=== PATIENT | male | born 1940 | race Caucasian/White ===

== ENCOUNTER 2020-03-21 21:52 | Emergency (ER) | payer MEDICARE, SELFPAY ==
--- NOTE | 2020-03-21 21:53 | ECG_ITS ---
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 Measurements Intervals [place] Rate: 71 P: 15 TN: 221 QRS: -3 QRSD: 104 T: 8 QT: 394 QTc: 431 Interpretive Statements SINUS RHYTHM WITH FIRST DEGREE AV BLOCK Possible old inferior wall OR No previous ECG available for comparison Electronically Signed On 03-22-2020 18:01:41 [employer] by Emery Lee M.D. [id number]
--- NOTE | 2020-03-21 21:53 | XR_ITS ---
WS: [id number] Exam: XR chest 1V portable [id number] Date/Time of Exam: 03/21/2020 9:57 PM Reason For Exam: cp No previous exams. Infiltrate and plaque atelectasis in the right lower lung zone. There may be some infiltrate in the l ingula. The heart is enlarged. The lungs are fully expanded. No obvious pleural effusion. Bony struct ures are intact. The mediastinum is normal in contour. XR/XR chest 1V portable [id number] IMPRESSION: 1. Infiltrate and atelectasis in the right lower lung zone. There may also be s ome infiltrate in the lingula. 2. Mild cardiac enlargement.
[2020-03-21 21:55] VITALS: BP 163/125; PULSE 75; RESP 17; O2SAT 100; BMI 28.7
--- NOTE | 2020-03-21 22:02 | ED_ITS ---
HPI - Chest Pain General: Chief Complaint: Chest Pain Stated Complaint: poss heart attack Time Seen by Provider: 03/21/20 21:54 Source: patient Mode of arrival: ambulatory Limitations: no limitations History of Present Illness: HPI narrative: 79-year-old male states started having chest pain started roughly 1 hour ago. States it was a sharp pain in his chest and went to his left chest and left arm. States that since resolved and he is now pain-free. He denies any nausea or shortness of breath. He states he was concerned that he is having a heart attack. He denies any worsening or improving factors. States the pain started while he was sitting in his computer. MD complaint: chest pain Onset (ago): hour(s) Associated symptoms: Deny abdominal pain, dyspnea, fever(s), nausea or vomiting Review of Systems Const: Denies: fever(s), chills, body aches or change in appetite Eyes: Denies: blurry vision or eye discomfort ENMT: Denies: throat pain or dental pain Card: Reports: chest pain Resp: Denies: dyspnea GI: Denies: abdominal pain, nausea, vomiting or diarrhea : Denies: dysuria Musc: Denies: neck pain or back pain Skin/Breast: Denies: rash Neuro: Denies: headache(s) Psych: Denies: depression Jermaine/Lymph: Denies: easy bruising All/Imm: Denies: urticaria Physical Exam Const: COMMON NORMALS: no acute distress, patient oriented x3 and healthy appearing HENMT: COMMON NORMALS: normocephalic and atraumatic HEAD & SCALP: normocephalic and atraumatic Eye: COMMON NORMALS: Equal, round and reactive pupils present and EOMs intact bilaterally PUPIL: Yes Equal, round and reactive pupils present Neck/C-Spine: COMMON NORMALS: full ROM and supple Chest: COMMONS NORMALS: normal inspection of the chest and normal palpation of entire chest wall Resp: COMMON NORMALS: normal respiratory effort, No retractions, No use of accessory muscles and clear to auscultation bilaterally AUSCULTATION: clear to auscultation bilaterally Cardio: COMMON NORMALS: regular rate, regular rhythm and No murmurs present (Cardio) RATE: regular rate RHYTHM: regular rhythm GI: COMMON NORMALS: Normal to inspection, nondistended, normoactive bowel sounds present, Soft to palpation, non-tender and no masses PALPATION: Yes Soft to palpation Extremity: COMMON NORMALS: normal to inspection and full ROM Neuro: COMMON NORMALS: patient oriented x3, moves all extremities and no focal motor deficits Psych: COMMON NORMALS: mental status grossly normal, Normal thought process present and cooperative THOUGHT PROCESS: Normal thought process present Skin: COMMON NORMALS: no rashes or lesions noted and no wounds GENERAL SKIN EXAM: no rashes or lesions noted Course Vital Signs: Vital signs: Vital Signs Pulse Rate 70 03/21/20 23:44 Respiratory Rate 19 H 03/21/20 23:44 Blood Pressure 132/73 03/21/20 23:44 Pulse Oximetry 95 03/21/20 23:44 MDM - Chest Pain MDM Narrative: Medical decision making narrative: Patient presents or chest pain. Strongly recommended admission due to his consistent story. He states he feels much improved and refuses admission. A second troponin was negative. We will have him follow-up with a primary care doctor and he is return if he has any more chest pain. He understands agrees to plan. He has no signs of pulmonary embolism or aortic dissection. Lab Data: Labs: Lab Results 03/21/20 03/21/20 03/21/20 Range/Units 22:10 22:10 22:10 WBC 9.9 (4.0-10.0) 10^3/ uL RBC 4.86 (4.1-5.3) 10^6/u L Hgb 15.2 (11.7-16.6) g/dL Hct 46.0 (42.0-52.0) % MCV 94.7 H (80-94) fL MCH 31.3 (28.0-34.0) pg MCHC 33.0 (30.0-36.0) g/dL RDW 11.8 L (12.1-15.1) % Plt Count 167 (130-400) 10^3/c mm MPV 9.7 (7.4-10.4) fL Neut % (Auto) 45.3 % Lymph % (Auto) 33.9 % [place] % (Auto) 17.7 % Eos % (Auto) 1.9 % Baso % (Auto) 0.8 % Neut # (Auto) 4.49 (1.8-7.7) 10^3/u L Lymph # (Auto) 3.4 (0.8-4.8) 10^3/u L [place] # (Auto) 1.8 H (0.2-0.9) 10^3/u L Eos # (Auto) 0.2 (0.0-0.8) 10^3/u L Baso # (Auto) 0.1 (0.0-0.1) 10^3/u L Nucleated RBC % (a uto) 0 % Nucleated RBCs # 0.0 /100WBC Sodium 135 L (136-145) mmol/L Potassium 4.0 (3.5-5.1) mmol/L Chloride 102 (98-107) mmol/L Carbon Dioxide 24 (22-29) mmol/L Anion Gap 13.0 (5-19) BUN 22 (8-23) mg/dL Creatinine 1.2 (0.7-1.2) mg/dL GFR Calculation Not Reportable Glucose 103 (65-115) mg/dL Calculated Osmolal ity 284 L (285-295) mOsm/k g Calcium 9.1 (8.5-10.5) mg/dL Total Bilirubin 0.4 (0.15-1.2) mg/dL AST 24 (0-40) U/L ALT 18 (0-41) U/L Alkaline Phosphata se 79 (40-130) IU/L Troponin T Baselin e 9 (0-15) ng/L Troponin T 120 [address] [place] (0-15) ng/L Delta Troponin T (0-10) ABS# Total Protein 7.0 (6.6-8.7) g/dL Albumin 3.8 (3.5-5.2) g/dL Globulin 3.2 (1.3-4.6) g/dL 03/21/20 Range/Units 23:55 WBC (4.0-10.0) 10^3/ uL RBC (4.1-5.3) 10^6/u L Hgb (11.7-16.6) g/dL Hct (42.0-52.0) % MCV (80-94) fL MCH (28.0-34.0) pg MCHC (30.0-36.0) g/dL RDW (12.1-15.1) % Plt Count (130-400) 10^3/c mm MPV (7.4-10.4) fL Neut % (Auto) % Lymph % (Auto) % [place] % (Auto) % Eos % (Auto) % Baso % (Auto) % Neut # (Auto) (1.8-7.7) 10^3/u L Lymph # (Auto) (0.8-4.8) 10^3/u L [place] # (Auto) (0.2-0.9) 10^3/u L Eos # (Auto) (0.0-0.8) 10^3/u L Baso # (Auto) (0.0-0.1) 10^3/u L Nucleated RBC % (a uto) % Nucleated RBCs # /100WBC Sodium (136-145) mmol/L Potassium (3.5-5.1) mmol/L Chloride (98-107) mmol/L Carbon Dioxide (22-29) mmol/L Anion Gap (5-19) BUN (8-23) mg/dL Creatinine (0.7-1.2) mg/dL GFR Calculation Glucose (65-115) mg/dL Calculated Osmolal ity (285-295) mOsm/k g Calcium (8.5-10.5) mg/dL Total Bilirubin (0.15-1.2) mg/dL AST (0-40) U/L ALT (0-41) U/L Alkaline Phosphata se (40-130) IU/L Troponin T Baselin e (0-15) ng/L Troponin T 120 Min [place] 9.38 (0-15) ng/L Delta Troponin T 0.38 (0-10) ABS# Total Protein (6.6-8.7) g/dL Albumin (3.5-5.2) g/dL Globulin (1.3-4.6) g/dL Imaging Data^: CXR: Attestation: I personally reviewed and interpreted this imaging study as follows: My impression: no acute abnormality EKG Data^: EKG 1: Attestation: I personally reviewed and interpreted this EKG as follows: EKG interpretation date: 03/21/20 EKG interpretation time: 21:57 Interpretation: nsr hr [address] or t wave abnormalities qrs 104 qtc 417 Discharge Plan Discharge Patient Disposition: Home Clinical Impression: Chest pain Qualifiers: Chest pain type: unspecified Qualified Code(s): R07.9 - Chest pain, unspecified Condition: Stable Discharge Orders: Discharge ED (Routine); Ordered 03/22/20 Ordered By: Edinson Carrero Discharge Diet: Advance as tolerated Discharge Activity: Resume usual activity Patient Instructions: Chest Pain (ED) Coding Level of Care Code ED Decorating Inspector for Amy Fwsarah Exam Comprehensive
[2020-03-21 22:03] VITALS: BP 128/94; PULSE 74; RESP 12; O2SAT 100
--- NOTE | 2020-03-21 22:06 | PC.NURSE ---
patient reports that he took ASA at home prior to arrival
[2020-03-21 22:27] LABS: Basophils # 0.1 10^3/uL (0.0-0.1); Basophils % 0.8 %; Eosinophils # 0.2 10^3/uL (0.0-0.8); Eosinophils % 1.9 %; Hemoglobin 15.2 g/dL (11.7-16.6); Lymphocytes # 3.4 10^3/uL (0.8-4.8); Lymphocytes % 33.9 %; Mean Corpuscular Hemoglobin 31.3 pg (28.0-34.0); Mean Corpuscular Volume 94.7 fL (80-94); Mean Platelet Volume 9.7 fL (7.4-10.4); Monocytes # 1.8 10^3/uL (0.2-0.9); Monocytes % 17.7 %; Neutrophils # 4.49 10^3/uL (1.8-7.7); Neutrophils % 45.3 %; Nucleated Red Blood Cells % 0 %; Platelet Count 167 10^3/cmm (130-400); Red Blood Count 4.86 10^6/uL (4.1-5.3); Red Cell Distribution Width 11.8 % (12.1-15.1); White Blood Count 9.9 10^3/uL (4.0-10.0)
[2020-03-21 22:41] LABS: Alanine Aminotransferase 18 U/L (0-41); Albumin Level 3.8 g/dL (3.5-5.2); Alkaline Phosphatase 79 IU/L (40-130); Blood Urea Nitrogen 22 mg/dL (8-23); Calcium 9.1 mg/dL (8.5-10.5); Carbon Dioxide 24 mmol/L (22-29); Chloride 102 mmol/L (98-107); Globulin 3.2 g/dL (1.3-4.6); Glucose 103 mg/dL (65-115); Osmolality Calculated 284 mOsm/kg (285-295); Sodium 135 mmol/L (136-145); Total Bilirubin 0.4 mg/dL (0.15-1.2)
[2020-03-21 22:43] LABS: Aspartate Amino Transferase 24 U/L (0-40); Troponin(5th) Baseline 9 ng/L (0-15)
[2020-03-21 23:07] VITALS: BP 132/73; PULSE 75; RESP 13; O2SAT 95
[2020-03-21 23:44] VITALS: BP 132/73; PULSE 70; RESP 19; O2SAT 95
[2020-03-22 00:17] LABS: Troponin 5 2HR 9.38 ng/L (0-15); Troponin 5 2HR Delta 0.38 ABS# (0-10)
[2020-03-22 00:36] VITALS: BP 125/76; PULSE 72; RESP 15; O2SAT 97
--- NOTE | 2020-03-23 09:25 | DCPLANNER ---
manager retail had message to schedule a follow up appointment for patient with heart care. manager retail called the heart care clinic, spoke with Tricia, gave clinic patients information. A follow up appointment was scheduled for March at 8:[address] Amado. manager retail called patients daughter and gave her the appointment information.
--- NOTE | 2020-05-16 11:37 | DCPLANNER ---
Patient had a follow up appointment scheduled for 03.29.[address] Amado at [facility] - patient did attend appointment.
== END 2020-03-22 00:36 | disposition home or self-care (01) ==
PROVIDERS: Emergency Provider Emergency Medicine
DX: R07.9 Chest pain, unspecified (principal)
CPT/HCPCS: 12345; 36415; 71045; 80053; 84484; 85025; 93005; 99282; 99283